=== PATIENT | female | born 1965 | race Caucasian/White ===

== ENCOUNTER → 2018-11-06 | Day surgery (SDC) | payer OTHER ==
[~2018-11-06] MED LIST: Dextrose 5%-0.45% NaCl 1,000 ML IV SCH; Midazolam 1 MG/ML 2 ML SDV IV ONE; Midazolam 1 MG/ML 2 ML SDV ONE; Sodium Chloride 0.9% 10 ML Syringe FLUSH PRN; fentaNYL 100 MCG/2 ML SDV IV ONE; fentaNYL 100 MCG/2 ML SDV ONE
--- NOTE | 2018-11-06 13:05 | OR ---
DATE: 11/06/2018 PROCEDURE PERFORMED: Total colonoscopy and multiple cold snare polypectomies. INSTRUMENT USED: PCF-H190DL Olympus video colonoscope. PREMEDICATIONS: Fentanyl 100 mcg intravenous, Versed 3 mg intravenous. Nasal O2 cannula. The procedure was done under pulse oximetry, BP recording, and secured entrance monitor. INDICATION: The patient with previous colonic adenoma. Surveillance colonoscopic examination is done for detection of any polypoid lesions and removal, endoscopic hemostasis therapy if needed. DESCRIPTION OF PROCEDURE: Initial rectal exam was unremarkable. Rigid anoscopy showed diminutive benign-appearing polyp without bleeding from it. The colonoscope was passed with ease. Photograph was taken of the distal rectum showing diminutive benign-appearing polyp. Cold snare polypectomy was done, the tissue was retrieved and sent for histopathology. Numerous scattered diverticula were noted in the distal left colon along with deformity. The scope was passed with ease up to the ileocecal area. In the distal descending colon, a 3-mm sized benign-appearing polyp was noted. Cold snare polypectomy was done, the tissue was retrieved and sent for histopathology. No bleeding was noted from any of the visualized areas at the commencement of the examination. The bowel preparation was found to be adequate, [place] scale 2. No stricture. No vascular ectasia. No large isolated ulcerations seen. No evidence of diffuse inflammatory bowel disease in the form of friability, contact bleeding, or ulcerations. Probing the proximal sides of folds and flexures using adequate distention and clearing up the stool material, withdrawal of the scope was made, cecum to rectum, time over 6 minutes. No bleeding was noted from any of the visualized areas at the completion of examination. IMPRESSION: 1. Diverticulosis. 2. Multiple colonic polyps. The patient tolerated the procedure well. [facility] /[id number]
== END ==
LOC: DL.ENDO 05:26
PROVIDERS: ATTEND Internal Medicine Gastroenterology
DX: Z12.11 Encounter for screening for malignant neoplasm of colon (principal); D12.4 Benign neoplasm of descending colon; D12.8 Benign neoplasm of rectum; Z86.010 Personal history of colon polyps; K57.30 Diverticulosis of large intestine without perforation or abscess without bleeding; E66.09 Other obesity due to excess calories; Z68.38 Body mass index [BMI] 38.0-38.9, adult; Z98.890 Other specified postprocedural states
CPT/HCPCS: 45385; J2250; J3010; J7042

== ENCOUNTER 2022-09-30 05:53 | Day surgery (SDC) | payer BC, OTHER ==
[2022-09-30] MEDS ORDERED: Dextrose 5%-0.45% NaCl 1,000 ML IV SCH (06:00)
[2022-09-30] MEDS ORDERED: Sodium Chloride 0.9% 10 ML Syringe FLUSH PRN (06:00)
[2022-09-30] MEDS ORDERED: Midazolam 1 MG/ML 2 ML SDV ONE (07:02)
[2022-09-30] MEDS ORDERED: fentaNYL 100 MCG/2 ML SDV ONE (07:02)
[2022-09-30] MEDS ORDERED: fentaNYL 100 MCG/2 ML SDV IV ONE ×2 (07:07→07:08)
[2022-09-30] MEDS ORDERED: Midazolam 1 MG/ML 2 ML SDV IV ONE ×6 (07:08→07:13)
[2022-09-30] MEDS ORDERED: Sodium Chloride 0.9% 10 ML Syringe FLUSH SCH (09:00)
== END 2022-09-30 08:45 | disposition home or self-care (01) ==
LOC: DL.ENDO 05:53
PROVIDERS: ATTEND Internal Medicine Gastroenterology
DX: Z12.11 Encounter for screening for malignant neoplasm of colon (principal); K57.30 Diverticulosis of large intestine without perforation or abscess without bleeding; K64.4 Residual hemorrhoidal skin tags; K64.8 Other hemorrhoids; E66.09 Other obesity due to excess calories; Z85.038 Personal history of other malignant neoplasm of large intestine; Z90.49 Acquired absence of other specified parts of digestive tract; Z98.890 Other specified postprocedural states; Z68.35 Body mass index [BMI] 35.0-35.9, adult
CPT/HCPCS: 45378; J2250; J3010; J7042